=== PATIENT | female | born 1960 | race Caucasian/White ===

== ENCOUNTER 2016-11-12 22:38 | Emergency (ER) | payer MEDICAID ==
[2016-11-12] MEDS ORDERED: ACETAMINOPHEN 500 MG TABLET PO ONE ×2 (22:54→23:44)
[2016-11-12] MEDS ORDERED: NITROGLYCERIN 0.4 MG/TAB BTL SL ONE (22:57)
--- NOTE | 2016-11-12 22:57 | ERNOTE ---
Chest Pain/Cardiac HPI Date of Service: 11/13/16 Chief Complaint: Back Pain Source: patient Immunizations: IMMUNIZATION HX Immunizations Up to Date Yes History of Influenza Vaccine Yes Hx Pneumococcal Vaccination Yes Allergies/Adverse Reactions: Allergies No Known Allergies Allergy (Verified 11/03/15 16:54) Home Medications: HOME MEDICATIONS Citalopram Hydrobromide [Citalopram HBr] 20 mg PO DAILY 11/03/15 [Last Taken Unknown] Diclofenac Sodium [Voltaren] 75 mg PO BID 11/03/15 [Last Taken Unknown] HYDROcodone/ACETAMINOPHEN [[place] 5-325] 1 tab PO Q4H PRN 11/03/15 [Last Taken Unknown] Levothyroxine Sodium [Unithroid] 200 mcg PO DAILY 11/03/15 [Last Taken Unknown] Methocarbamol [Robaxin] 500 mg PO TID 11/03/15 [Last Taken Unknown] Omeprazole [Prilosec] 40 mg PO DAILY 11/03/15 [Last Taken Unknown] Oxybutynin Chloride [Ditropan Xl] 5 mg PO DAILY 11/03/15 [Last Taken Unknown] traMADol HCL [Ultram] 50 mg PO DAILY 11/03/15 [Last Taken Unknown] Cyclobenzaprine HCl [Flexeril] 10 mg PO TID PRN #15 tablet 11/12/16 [Last Taken Unknown] Narrative: 56 year old that has been having left shoulder blade pain that started while she was sitting in her chair this morning. The pain radiates to the neck and to the left arm all day. She came in tonight due to an increase in the pain. Movement of the left arm increases the pain. No pain with deep breathing. Denies any shortness of breath, coughing or rashes. No complaints or chest pain. There is no history of dysuria, or urinary frequency. [place] chilled this morning. Timing: constant Severity/Quality: moderate Location: back Activities at Onset: none Modifying Factors - Improves: Present: other - being still Modifying Factors - Worsens: Present: movement Nitro Today/Relief: 0.4 mg x 1 - minimal relief Review of Systems - Review of Systems Constitutional: Present: no symptoms reported EYE: Present: no symptoms reported ENT: Present: no symptoms reported Respiratory: Present: no symptoms reported Cardiology: Present: no symptoms reported Gastrointestinal/Abdominal: Present: no symptoms reported Genitourinary: Present: no symptoms reported Musculoskeletal: Present: See HPI Skin: Present: no symptoms reported Neurological: Present: no symptoms reported Endocrine: Present: no symptoms reported Hematologic/Lymphatic: Present: no symptoms reported Psych: Present: no symptoms reported - Patient's Past Medical History Patient History - Medical: Chronic Pain, Depression, GERD, Hypothyroidism Patient History - Cardiac/Respiratory: Hypertension, Hyperlipidemia Patient History - Cancer: No Hx of Cancer Patient History - Surgical Procedures: Cholecystectomy, , Hysterectomy , Total Knee Replacement, Other Patient History - Other: None - Social History Living Situations: alone Abuse History: No History of abuse Psych History: Hx of Depression Smoking Status: Never smoker Have you smoked in the past 12 months: No Do you dip or chew tobacco: No Alcohol Use: none Drug Use: none - Immunizations Immunizations Up to Date: Yes Hx Pneumococcal Vaccination: Yes History of Influenza Vaccine: Yes Physical Exam - Physical Exam General Appearance: Present: no apparent distress Eye Exam: Normal inspection: bilateral Ears, Nose, Throat: Present: normal ENT inspection Neck: Present: normal inspection Respiratory: Present: no respiratory distress Cardiovascular/Chest: Present: regular rate, rhythm Gastrointestinal/Abdominal: Present: nondistended, soft Back Exam: Present: normal inspection, other - Tenderness that recreates the pain at the musculature medial to the left scapula. Spasm present. Extremity Exam: Present: normal inspection Neurological Exam: Present: alert, oriented Skin Exam: Present: normal color ED Progress - Results and Orders Patient's Lab Results:: I have reviewed the patient's lab results. - Vital Signs Patient's Vital Signs:: I have reviewed the patient's vital signs. Vital Signs: Vital Signs 11/12/16 11/12/16 22:42 22:51 Temperature 38.8 C H Pulse Rate 81 80 Respiratory 18 18 Rate Blood Pressure 191/96 175/93 O2 Sat by Pulse 96 99 Oximetry - EKG EKG: NSR EKG read: Interp. by me EKG Comments: Rate 80; LAD, sinus. NO change from previous EKG-11/12/16 - X-Ray X-Ray #1 X-Ray: chest Interpretation: Interp. by me X-ray Comments: no acute changes. - Progress/Reassessment Chief Complaint: Chest Pain Progress:: Improved Progress Note-Subjective: 11/13/16 00:24 Since getting [place] she is more comfortable and falling asleep. 11/13/16 00:29 The fever is likely due to a viral infection since there are no other symptoms that would imply pneumonia or UTI. Departure - Departure Clinical Impression: Muscle spasm, Viral syndrome Disposition: Home self-care Condition: Fair Instructions: Muscle Cramps and Spasms Print Language: Romansh Additional Instructions: You can apply heat to the area of the pain at your shoulder blades if it makes you more comfortable. Prescriptions: Cyclobenzaprine HCl [Flexeril] 10 mg PO TID PRN #15 tablet PRN Reason: Spasms
[2016-11-12 23:05] LABS: Hematocrit 30.1 % (37.0-47.0); Hemoglobin 9.1 gm/dL (12.5-16.0); Mean Cell Volume 73.8 fl (78-100); Mean Corpuscular Hemoglobin 22.3 pg (27-31); Mean Corpuscular Hgb Conc 30.2 g/dl (32-36); Mean Platelet Volume 9.4 fl (6.0-9.5); Neutrophil # 5.5 K/mm3 (1.3-6.0); Neutrophil % 64.1 % (42-75.0); Platelet Count 406 K/mm3 (150-450); Red Blood Count 4.08 M/mm3 (4.2-5.4); Red Cell Distribution Width 16.5 % (11.5-14.0); White Blood Count 8.6 K/mm3 (4.0-10.5)
[2016-11-12 23:17] LABS: Prothrombin Time (Patient) 10.4 Seconds (9.4-11.4)
[2016-11-12 23:21] LABS: Partial Thrombolplastin Time 21.6 Seconds (24-32)
[2016-11-12 23:26] LABS: ALT 27 U/L (19-67); AST 18 U/L (0-48); Albumin * 3.4 gm/dl (3.4-5.0); Alkaline Phosphatase * 80 U/L (50-170); Anion Gap 13.7 mmol/L (6.8-13.8); BUN/Creatinine Ratio 26.8 (9.0-21.6); Bilirubin, Total 0.3 mg/dL (0.0-1.1); Blood Urea Nitrogen 19 mg/dL (3-23); Ca. Corrected For Albumin 9.4 mg/dL (8.4-10.2); Calcium * 9.2 mg/dL (7.9-10.9); Carbon Dioxide 26.5 mmol/L (24-32.6); Chloride 103 mmol/L (97-106); Glucose * 132 mg/dL (70-110); Potassium 4.2 mmol/L (3.4-4.6); Sodium 139 mmol/L (132-142); Total Protein 7.1 gm/dL (6.2-8.2); Troponin I Less than 0.017 ng/ml (0.00-0.10)
[2016-11-12 23:37] LABS: Urine Bilirubin Negative (NEGATIVE); Urine Blood Negative /ul (NEGATIVE); Urine Ketone Negative (NEGATIVE); Urine Nitrite Negative (NEGATIVE); Urine Protein Negative (NEGATIVE); Urine Urobilinogen Normal (NORMAL); Urine pH 7.5 pH (5.0-7.0)
[2016-11-12] MEDS ORDERED: CYCLOBENZAPRINE HCL 10 MG TABLET PO ONE (23:44)
[2016-11-12] MEDS ORDERED: KETOROLAC TROMETHAMINE 30 MG/ML VIAL IV ONE (23:44)
[2016-11-12 23:45] LABS: Urine Appearance Clear; Urine Bacteria TRACE; Urine Color Yellow; Urine RBC 0-5 /hpf (0-5); Urine WBC 0-5 /hpf (0-5)
[2016-11-12] MEDS ORDERED: CYCLOBENZAPRINE HCL 10 MG TABLET ONE (23:49)
[2016-11-12] MEDS ORDERED: KETOROLAC TROMETHAMINE 30 MG/ML VIAL ONE (23:49)
--- OUTSIDE RECORDS SUMMARY | 2016-11-13 00:37 | XMS REPORT | Continuity of Care Document ---
:1960 Author Organization [facility] [place] [address] Care Team Providers Name Role Phone Unavailable Primary Care Provider Unavailable Source Comments This disclosure is being made pursuant to the [employer] program and maynot contain all information available regarding this patient.[facility] Active Allergies and Adverse Reactions Not on File Current Medications Be aware that medications may not be up to date as of this document. Alwaysverify current medications with the patient. Not on file Active Problems Not on file Social History Tobacco Use Types Packs/Day Years Used Date Never Assessed Plan of Care Health Maintenance Due Date Last Done Comments Retired-Pertussis Vaccine Adult 1979 Retired-Tetanus Vaccine Adult 1979 Pap Smear 1981 Mammogram 2000 Colonoscopy 2010 Well Adult Visit 2010 Retired-INFLUENZA VACCINE 01/20/2015 Results from Last 3 Months Not on file
[2016-11-13 01:25] VITALS: BP 149/79
== END 2016-11-13 00:42 | disposition home or self-care (01) ==
LOC: ER 22:38
DX: M62.838 Other muscle spasm (principal); B34.9 Viral infection, unspecified; G89.29 Other chronic pain; F32.89 Other specified depressive episodes; K21.9 Gastro-esophageal reflux disease without esophagitis; E03.9 Hypothyroidism, unspecified; I10 Essential (primary) hypertension; E78.5 Hyperlipidemia, unspecified

== ENCOUNTER 2017-02-12 16:04 | Emergency (ER) | payer MEDICAID ==
[2017-02-12 16:15] VITALS: BP 154/102
--- NOTE | 2017-02-12 16:20 | ERNOTE ---
Upper Extremity HPI - Narrative Date of Service: 02/12/17 - General Extremities Pain Location: wrist: right Time Seen by Provider: 02/12/17 16:18 Source: patient, RN notes reviewed Exam Limitations: no limitations - Immun/Allergies/Home Medications Immunizations: IMMUNIZATION HX Immunizations Up to Date Yes History of Influenza Vaccine Yes Hx Pneumococcal Vaccination Yes Allergies/Adverse Reactions: Allergies Allergy/AdvReac Type Severity Reaction Status Date / Time No Known Allergies Allergy Verified 02/12/17 16:15 Home Medications: HOME MEDICATIONS Citalopram Hydrobromide [Citalopram HBr] 20 mg PO DAILY 11/03/15 [Last Taken Unknown] Diclofenac Sodium [Voltaren] 75 mg PO BID 11/03/15 [Last Taken Unknown] Levothyroxine Sodium [Unithroid] 200 mcg PO DAILY 11/03/15 [Last Taken Unknown] Methocarbamol [Robaxin] 500 mg PO TID 11/03/15 [Last Taken Unknown] Omeprazole [Prilosec] 40 mg PO DAILY 11/03/15 [Last Taken Unknown] Oxybutynin Chloride [Ditropan Xl] 5 mg PO DAILY 11/03/15 [Last Taken Unknown] traMADol HCL [Ultram] 50 mg PO DAILY 11/03/15 [Last Taken Unknown] Cyclobenzaprine HCl [Flexeril] 10 mg PO TID PRN #15 tablet 11/12/16 [Last Taken Unknown] HYDROcodone/ACETAMINOPHEN [[place] 5-325] 1 tab PO Q4H PRN #20 tablet 02/12/17 [ Last Taken Unknown] - History of Present Illness Narrative: 56 y/o female ambulatory to the ED for right wrist pain that began when she was trying to open a jar 2 days ago. She has been taking Tramadol for pain without relief. She has had a carpal tunnel release on the same extremity several years ago, but no prior injuries. Date (Duration): 02/10/17 Location of Incident: home Associated Symptoms: Denies: tingling, weakness, numbness distally Other Injuries: Reports: none Prior Treament: Denies: recently seen, similar symptoms before Review of Systems - Review of Systems Constitutional: Absent: recent illness, fever, malaise EYE: Present: no symptoms reported ENT: Present: no symptoms reported Respiratory: Present: no symptoms reported Cardiology: Present: no symptoms reported Gastrointestinal/Abdominal: Present: no symptoms reported Genitourinary: Present: no symptoms reported Musculoskeletal: Present: joint pain, joint swelling Skin: Absent: lesions, lumps, change in color Neurological: Absent: weakness, numbness, tingling Endocrine: Present: no symptoms reported Hematologic/Lymphatic: Present: no symptoms reported Psych: Present: no symptoms reported - Patient's Past Medical History Patient History - Medical: Chronic Pain, Depression, GERD, Hypothyroidism, Obesity Patient History - Cardiac/Respiratory: Hypertension, Hyperlipidemia Patient History - Cancer: No Hx of Cancer Patient History - Surgical Procedures: Cholecystectomy, , Hysterectomy , Total Knee Replacement, Other, Orthopedic Patient History - Other: None - Social History Living Situations: alone Abuse History: No History of abuse Psych History: Hx of Depression Smoking Status: Never smoker Have you smoked in the past 12 months: No Alcohol Use: none Drug Use: none - Immunizations Immunizations Up to Date: Yes Hx Pneumococcal Vaccination: Yes History of Influenza Vaccine: Yes Physical Exam - Physical Exam General Appearance: Present: alert, mild distress, obese, crying Head Exam: Present: normal inspection Respiratory: Present: no respiratory distress, no accessory muscle use Cardiovascular/Chest: Present: normal peripheral pulses Peripheral Pulses: N=norm/S=strong/W=weak/B=bound/A=absent: Radial (R): Strong, Radial (L): Strong Extremity Exam: Present: decreased range of motion - Right wrist, joint swelling - Right wrist, extremity edema - Right wrist and hand. Absent: joint redness Neurological Exam: Present: alert, oriented, normal mood/affect, no motor/ sensory deficits Skin Exam: Present: normal color, warm/dry ED Progress - Vital Signs Patient's Vital Signs:: I have reviewed the patient's vital signs. Vital Signs: Vital Signs 02/12/17 16:13 Temperature 37.8 C H Pulse Rate 83 Respiratory 14 Rate Blood Pressure 154/102 O2 Sat by Pulse 96 Oximetry - X-Ray X-Ray #1 X-Ray: wrist - Right Interpretation: Interp. by me X-ray Comments: Mildly displaced right distal radius fracture - Progress/Reassessment Chief Complaint: Wrist Injury/Pain Progress:: Improved Procedures Location: Right wrist Pre-Proc Neuro Vasc Exam: normal Pre-Made Type: velcro Splint: thumb spica Alignment good: Yes Splint applied by: Nurse Post-Proc Neuro Vasc Exam: normal Complications: Pt randolph procedure well Departure Clinical Impression: Distal radius fracture, right Qualifiers: Encounter type: initial encounter Fracture type: closed Fracture morphology: unspecified fracture morphology Qualified Code(s): S52.501A - Unspecified fracture of the lower end of right radius, initial encounter for closed fracture - Departure Disposition: Home Follow Up Needed Condition: Stable Instructions: Wrist Fracture Treated With Immobilization, [id number] Additional Instructions: Elevate wrist whenever able Wear splint Contact orthopedics tomorrow regarding follow-up Referrals: Abdi Ojeda MD [Staff Physician] - Prescriptions: HYDROcodone/ACETAMINOPHEN [[place] 5-325] 1 tab PO Q4H PRN #20 tablet PRN Reason: Pain
== END 2017-02-12 17:12 | disposition home or self-care (01) ==
LOC: ER 16:04
PROC: 2W3CX1Z Immobilization of Right Lower Arm using Splint (ICD-10-PCS; principal; 2017-02-12)
DX: S52.501A Unspecified fracture of the lower end of right radius, initial encounter for closed fracture (principal); X58.XXXA Exposure to other specified factors, initial encounter; Y93.89 Activity, other specified; Y92.009 Unspecified place in unspecified non-institutional (private) residence as the place of occurrence of the external cause

== ENCOUNTER 2017-03-31 08:19 | Day surgery (SDC) | payer MEDICAID ==
[~2017-03-31 08:19] MED LIST: RINGER'S SOLUTION,LACTATED 1,000 ML IV PRN; ceFAZolin SODIUM 1 GM VIAL IV PRN
[2017-03-31] MEDS ORDERED: BUPIVACAINE HCL 50 ML VIAL IJ ONE ×2 (09:55)
--- NOTE | 2017-03-31 10:14 | POSTOP NO ---
Date of Surgery: 03/31/17 Anesthesia: MAC Patient Tolerated the Procedure: Well Post Operative Diagnosis/Procedures: Acid Operator: Venkatesh Akins PA-C Post-operative Diagnosis: Left carpal tunnel syndrome Finding: Above Procedure: Left endoscopic carpal tunnel release Estimated Blood Loss: Minimal Specimens: None
--- NOTE | 2017-03-31 10:15 | OR ---
Operative Report - Dictated Report Narrative: Date: 03/31/2017 Physician: Abdi Ojeda M.D. Bottom Pounder Cement Shoes: Venkatesh Akins PA-C Preoperative diagnosis: Left carpal tunnel syndrome Postoperative diagnosis: Left carpal tunnel syndrome Procedure: Endoscopic left carpal tunnel release Anesthesia: MAC plus local Complications: None Estimated blood loss: Minimal Tourniquet time: 10 Minutes at 250 mmHg Specimens: None Retained implants: None Drains: None Indications: Mrs. Paz Is a 56-year-old female who has been followed in my clinic with complaints of carpal tunnel syndrome. Physical exam as well as diagnostic testing showed compression of the median nerve compatible with carpal tunnel syndrome. Conservative measures have failed including but not limited to activity modification, medications, and/or bracing. The risks, benefits, and alternatives were discussed in clinic. The risks being bleeding, infection, nerve, tendon, blood vessel injury, persistent pain, wound competitions, weakness, palm pain, need for additional procedures, and persistent symptoms. Consent was obtained in the clinic. Procedure: After marking the correct extremity in the preoperative holding area, a timeout was performed in the operating room. IV antibiotics consisting of Ancef were administered prior to the procedure. A well-padded tourniquet was applied to the operative upper arm. The arm was prepped and draped in a standard sterile fashion. The arm was exsanguinated and the tourniquet was inflated to 250 mmHg. 0.5% Marcaine without epinephrine was infused into the projected portal sites. Using Loupe magnification, a transverse incision was made in the proximal wrist flexion crease just ulnar to the ulnar to the palmaris longus tendon or in line with approximately the ring finger. Blunt dissection and hemostasis with bipolar cautery was utilized down to the forearm fascia. The forearm fascia was split longitudinally just ulnar to the palmaris longus exposing the entry into the carpal tunnel. A [place] was placed under the transverse carpal ligament elevating the soft tissues under the dorsal aspect of the transverse carpal ligament. This was confirmed to be under the transverse carpal ligament based on the corrugated nature of the tissue. Once we had removed soft tissues from the transverse carpal ligament, a blunt trocar and cannula was introduced under the transverse carpal ligament exiting the palm through a cristal incision. The hand was then placed in a extension holding device and the camera was introduced into the cannula. A probe was utilized in order to ensure that all soft tissues were elevated off the dorsal aspect of the transverse carpal ligament and ensuring that all tissues were running transversely. No vascular or neurologic tissues were visualized. The push, followed by probe, followed by hook blades was utilized to transect the distal one half of the transverse carpal ligament. This allowed for ingress of fat. The camera was then placed distally looking proximally, and the proximal one half of the transverse carpal ligament was transected using the hook blade. This again allowed for ingress of fat. The probe blade was utilized in order to release any additional remaining fibers. Once it was felt that the transverse carpal ligament was completely transected, the blunt trocar was reintroduced into the trocar and removed in whole. A [place] was utilized in order to visualize the carpal tunnel ensuring that the transverse carpal ligament was completely released using a [place]. The distal forearm fascia was released ensuring that the median nerve was completely decompressed utilizing tenotomy scissors. Once it was felt that all the tissues overlying the median nerve were completely released, the wounds were thoroughly irrigated with saline which passed freely from the proximal to distal portal holes. Tourniquet was deflated and hemostasis was obtained with pressure as well as bipolar cautery. Once bleeding had resolved and there was no excessive bleeding , the wounds were closed with interrupted nylon. Xeroform, 4 x 4's, soft roll, and a well-padded dorsal short arm wrist splint was applied, and the patient was awoken and transferred to the postanesthesia care unit in stable condition. All sponge, needle, blade, and instrument counts were correct prior to closing the wounds. Additional 0.5% Marcaine without epinephrine was infused into the skin edges for pain control.
[2017-03-31 11:18] VITALS: BP 161/91
== END 2017-03-31 08:20 | disposition home or self-care (01) ==
LOC: AMB 08:19
PROVIDERS: ATTEND Orthopaedic Surgery
PROC: 01N54ZZ Release Median Nerve, Percutaneous Endoscopic Approach (ICD-10-PCS; principal; 2017-03-31 10:30)
DX: G56.02 Carpal tunnel syndrome, left upper limb (principal); I10 Essential (primary) hypertension; E03.9 Hypothyroidism, unspecified; Z68.42 Body mass index [BMI] 45.0-49.9, adult